=== PATIENT | male | born 1930 | race Caucasian/White ===

== ENCOUNTER → 2018-06-07 | Outpatient (CLI) | payer MEDICARE, OTHER ==
[~2018-06-07] MED LIST: HYDCOR2.5B TOP; HYDHCL10 PO
== END | disposition home or self-care (01) ==
LOC: PLD 13:46 → LAB SHORT 13:46
DX: L72.0 Epidermal cyst (principal)
CPT/HCPCS: 88305

== ENCOUNTER 2018-06-22 10:00 | Day surgery (SDC) | payer MEDICARE, OTHER ==
[~2018-06-22] VITALS: Ht 172.7 cm; Wt 83.2 kg
[2018-06-22] MEDS ORDERED: TAMS.4ER PO (12:21)
[2018-06-22] MEDS ORDERED: SYNTHROID25 MCG PO (12:24)
[2018-06-22] MEDS ORDERED: Felodipine ER2.5 MG PO (12:25)
[2018-06-22] MEDS ORDERED: OMEPRAZOLE20 MG PO (12:26)
[2018-06-22] MEDS ORDERED: CHOL10002 (12:27)
[2018-06-22] MEDS ORDERED: Calcium With M1 EAC2 (12:28)
[2018-06-22] MEDS ORDERED: ASPI81CH PO (12:28)
[2018-06-22] MEDS ORDERED: DIAZ5 PO (12:29)
[2018-06-22] MEDS ORDERED: MIRALAX17 GM PO (12:30)
[2018-06-22] MEDS ORDERED: ACET500 (12:30)
[2018-06-22] MEDS ORDERED: OMEGA 3-6-9 11200 MG PO (12:30)
--- NOTE | 2018-06-22 12:36 | NUR ---
06/22/18 1236 Shahzad Gan FIRST IV ATTEMPT IN LH UNSUCCESSFUL, [email or web address] 2ND IV ATTEMPT IN LAC SUCCESSFUL, [email or web address]
--- NOTE | 2018-06-22 13:47 | NUR ---
06/22/18 9154 Mihaela Short PT IS IN THE RECLINER AT THIS TIME AND ACCOMPANIED BY HIS GRANDDAUGHTER AND TWO GREAT GRANDSONS. VSS. RN WENT OVER DISCHARGE INSTRUCTIONS WITH PT AND PT'S FAMILY UNTIL ALL QUESTIONS WERE ANSWERED. PT CURRENTLY RATES PAIN 3/10. PT REQUEST ORAL PAIN MEDICATION. PT DENIES NAUSEA. PT ABLE TO TOLERATE PO FLUIDS AND CRACKERS WELL.
== END 2018-06-22 14:38 | disposition home or self-care (01) ==
LOC: ORSCSDS 10:00
PROVIDERS: Surgery
PROC: 0YU50JZ Supplement Right Inguinal Region with Synthetic Substitute, Open Approach (ICD-10-PCS; principal; 2018-06-22 11:30)
DX: K40.90 Unilateral inguinal hernia, without obstruction or gangrene, not specified as recurrent (principal); I12.9 Hypertensive chronic kidney disease with stage 1 through stage 4 chronic kidney disease, or unspecified chronic kidney disease; N18.3 Chronic kidney disease, stage 3 (moderate); J45.909 Unspecified asthma, uncomplicated; Z79.899 Other long term (current) drug therapy
CPT/HCPCS: C1781; J0690; J1100; J2405; J3010; J7120

== ENCOUNTER 2018-09-08 19:04 | Inpatient (IN) | payer MEDICARE, OTHER ==
[~2018-09-08] VITALS: Ht 172.7 cm; Wt 87.2 kg
[~2018-09-08 19:04] MED LIST changes: +ACET500; +ASPI81CH PO; +CHOL10002; +Calcium With M1 EAC2; +DIAZ5 PO; +Felodipine ER2.5 MG PO; +MIRALAX17 GM PO; +OMEGA 3-6-9 11200 MG PO; +OMEPRAZOLE20 MG PO; +SYNTHROID25 MCG PO; +TAMS.4ER PO
[2018-09-08 19:58] LABS: BASOPHILS ABSOLUTE AUTO 0.03 K/mm3 (0.00-0.23); BASOPHILS PERCENT AUTO 0 % (0-2); EOSINOPHILS ABSOLUTE AUTO 0.02 K/mm3 (0.00-0.68); EOSINOPHILS PERCENT AUTO 0 % (0-6); Hematocrit 45.4 % (37.0-53.0); Hemoglobin 15.1 g/dL (13.5-17.5); IMMATURE GRAN ABSOLUTE AUTO 0.05 K/mm3 (0.00-0.10); IMMATURE GRAN PERCENT AUTO 0 % (0-1); LYMPHOCYTES ABSOLUTE AUTO 0.74 K/mm3 (0.84-5.20); LYMPHOCYTES PERCENT AUTO 5 % (21-46); MONOCYTES ABSOLUTE AUTO 0.87 K/mm3 (0.16-1.47); MONOCYTES PERCENT AUTO 6 % (4-13); Mean Corpuscular HGB 32.4 pg (26.0-34.0); Mean Corpuscular HGB Conc 33.3 g/dL (31.5-36.5); Mean Corpuscular Volume 97 fL (80-100); Mean Platelet Volume 10.2 fL (9.1-12.4); NEUTROPHILS ABSOLUTE AUTO 12.74 K/mm3 (1.96-9.15); NEUTROPHILS PERCENT AUTO 88 % (41-73); Platelet Count 184 K/mm3 (150-400); RDW Coefficient Variation 12.3 % (11.7-14.2); RDW Standard Deviation 44.4 fL (35.1-46.3); Red Blood Cell Count 4.66 M/mm3 (4.30-5.90); White Blood Cell Count 14.45 K/mm3 (4.00-11.30)
[2018-09-08 20:31] LABS: Influenza A Negative (NEGATIVE); Influenza B Negative (NEGATIVE)
[2018-09-08 20:34] LABS: Albumin, Blood 3.3 g/dL (3.4-5.0); Albumin/Globulin Ratio 0.8 (0.8-1.8); Bilirubin, Total 1.6 mg/dL (0.1-1.0); Bun/Creatinine Ratio 17.3 (12.0-20.0); Calcium, Blood 8.8 mg/dL (8.5-10.1); Creatinine, Blood 1.33 mg/dL (0.60-1.20); Globulin, Blood 4.1 g/dL (2.2-4.0); Potassium, Blood 3.7 mmol/L (3.5-5.5); Total Protein, Blood 7.4 g/dL (6.4-8.2)
[2018-09-08] MEDS ORDERED: LEVSOD100 PO (22:06)
[2018-09-08] MEDS ORDERED: TAMS.4ER PO (22:06)
[2018-09-08] MEDS ORDERED: CHOL10002 (22:08)
[2018-09-08] MEDS ORDERED: Omeprazole20 M1 (22:08)
[2018-09-08] MEDS ORDERED: ALBU2.5V5 NEB (22:09)
[2018-09-08] MEDS ORDERED: DIAZ5 PO (22:09)
[2018-09-08] MEDS ORDERED: TYLENOL325 MG PO (22:10)
[2018-09-08] MEDS ORDERED: MIRALAX17 GM PO (22:10)
[2018-09-08 22:18] LABS: Source, Urine Clean Catch
[2018-09-08 22:21] LABS: Bilirubin, Urine Neg (Neg); Blood, Urine 4+ (Neg); Glucose Qualitative, Urine Neg (Neg); Ketones, Urine 3+ (Neg); Leukocyte Esterase, Urine 1+ (Neg); Nitrite, Urine Neg (Neg); Protein, Urine 2+ (Neg); Specific Gravity, Urine 1.015 (1.003-1.022); Urobilinogen, Urine NORM (Normal)
[2018-09-08 22:42] LABS: Appearance, Urine Clear (Clear); Color, Urine Yellow (P-Yellow)
[2018-09-08 22:43] LABS: Amorphous Light (0-Heavy); Bacteria Rare /hpf; Mucus Light (0-Heavy); Squamous Epithelial Cells Not Seen /hpf (Few); White Blood Cells, Urine 0-2 /hpf (0-5)
[2018-09-09] MEDS ORDERED: Prednisone50 MG PO (00:03)
[2018-09-09] MEDS ORDERED: ALBU90OI INH (00:03)
[2018-09-09] MEDS ORDERED: Zithromax250 MG PO (00:03)
[2018-09-09] MEDS ORDERED: BENZ100A PO (00:03)
[2018-09-09 05:43] LABS: Hematocrit 40.3 % (37.0-53.0); Hemoglobin 13.4 g/dL (13.5-17.5); Mean Corpuscular HGB 32.1 pg (26.0-34.0); Mean Corpuscular HGB Conc 33.3 g/dL (31.5-36.5); Mean Corpuscular Volume 96 fL (80-100); Mean Platelet Volume 10.5 fL (9.1-12.4); Platelet Count 162 K/mm3 (150-400); RDW Coefficient Variation 12.5 % (11.7-14.2); RDW Standard Deviation 44.5 fL (35.1-46.3); Red Blood Cell Count 4.18 M/mm3 (4.30-5.90); White Blood Cell Count 12.44 K/mm3 (4.00-11.30)
[2018-09-09 06:11] LABS: Albumin, Blood 2.7 g/dL (3.4-5.0); Albumin/Globulin Ratio 0.8 (0.8-1.8); Bilirubin, Total 1.3 mg/dL (0.1-1.0); Bun/Creatinine Ratio 17.2 (12.0-20.0); Calcium, Blood 7.9 mg/dL (8.5-10.1); Creatinine, Blood 1.28 mg/dL (0.60-1.20); Globulin, Blood 3.4 g/dL (2.2-4.0); Potassium, Blood 3.7 mmol/L (3.5-5.5); Total Protein, Blood 6.1 g/dL (6.4-8.2)
[2018-09-09 11:03] LABS: Adenovirus Not Detected (NOT DETECT); Bordetella pertussis Not Detected (NOT DETECT); Chlamydophila pneumoniae Not Detected (NOT DETECT); Coronavirus 229E Not Detected (NOT DETECT); Coronavirus HKU1 Not Detected (NOT DETECT); Coronavirus NL63 Not Detected (NOT DETECT); Coronavirus OC43 Not Detected (NOT DETECT); Human Metapneumovirus Not Detected (NOT DETECT); Human Rhinovirus/Enterovirus Not Detected (NOT DETECT); Influenza A Not Detected (NOT DETECT); Influenza A/2009-H1 Not Detected (NOT DETECT); Influenza A/H1 Not Detected (NOT DETECT); Influenza A/H3 Not Detected (NOT DETECT); Influenza B Not Detected (NOT DETECT); Mycoplasma pneumoniae Not Detected (NOT DETECT); Parainfluenza Virus 1 Not Detected (NOT DETECT); Parainfluenza Virus 2 Not Detected (NOT DETECT); Parainfluenza Virus 3 Not Detected (NOT DETECT); Parainfluenza Virus 4 Not Detected (NOT DETECT); Respiratory Syncytial Virus Not Detected (NOT DETECT)
--- NOTE | 2018-09-09 19:38 | NUR ---
SHIFT SUMMARY/ ADMIT NOTE PT ARRIVED VIA GURNEY TO FLOOR AT ABOUT 1417. REPORT RECIEVED FROM NACHO PENNINGTON RN AT 1402. ADMIT COMPLETED EXCEPT FOR ADMISSION ASSESSMENT DUE TO FAMILY REQUESTING THAT PT REST. THIS WAS PASSED ON TO SENIOR FORMULATION SCIENTIST NURSE WHO VERBALIZED THAT SHE WILL COMPLETE THIS ASSESSMENT. BED IN LOW POSITION, CALL LIGHT WITHIN REACH, BED ALARM ON. MED REC COMPLETE THOUGH PT WAS A POOR HISTORIAN. UP WITH 1 ASSIST, FWW AND STANLEY.
--- NOTE | 2018-09-09 20:52 | NUR ---
PATIENT FOUND TO HAve temp of 100.9 and tyleniol was given.
[2018-09-10 04:58] LABS: BASOPHILS ABSOLUTE AUTO 0.02 K/mm3 (0.00-0.23); BASOPHILS PERCENT AUTO 0 % (0-2); EOSINOPHILS PERCENT AUTO 0 % (0-6); Hematocrit 41.1 % (37.0-53.0); Hemoglobin 13.6 g/dL (13.5-17.5); IMMATURE GRAN ABSOLUTE AUTO 0.09 K/mm3 (0.00-0.10); IMMATURE GRAN PERCENT AUTO 1 % (0-1); LYMPHOCYTES ABSOLUTE AUTO 0.47 K/mm3 (0.84-5.20); LYMPHOCYTES PERCENT AUTO 4 % (21-46); MONOCYTES ABSOLUTE AUTO 0.57 K/mm3 (0.16-1.47); MONOCYTES PERCENT AUTO 5 % (4-13); Mean Corpuscular HGB Conc 33.1 g/dL (31.5-36.5); Mean Corpuscular Volume 97 fL (80-100); Mean Platelet Volume 10.5 fL (9.1-12.4); NEUTROPHILS ABSOLUTE AUTO 10.99 K/mm3 (1.96-9.15); NEUTROPHILS PERCENT AUTO 91 % (41-73); Platelet Count 146 K/mm3 (150-400); RDW Coefficient Variation 12.5 % (11.7-14.2); RDW Standard Deviation 44.7 fL (35.1-46.3); Red Blood Cell Count 4.25 M/mm3 (4.30-5.90); White Blood Cell Count 12.14 K/mm3 (4.00-11.30)
--- NOTE | 2018-09-10 17:10 | NUR ---
SHIFT SUMMARY PATIENT FEBRILE OVER 100 DEGREE F DAY SHIFT 09/10/18. WHEN FEVER GETS OVER 101 PATIENT SHAKES VIOLENTLY. HE WAS DIAPHORETIC AND CLAMMY. AFTER FEVER CAME DOWN A LITTLE AT ABOUT 1500 PATIENT HAS BEEN SLEEPING. HE IS A LITTLE UNSTEADY ON FEET AND THEREFORE CALLS FOR HELP GETTING UP. BED ALARM ON. FULLY A&O. LOTS OF FAMILY AT BEDSIDE.
--- NOTE | 2018-09-11 19:39 | NUR ---
SHIFT SUMMARY: NO ACUTE CHANGES TO REPORT THIS SHIFT. PT A&O; CALM AND COOPERATIVE WITH CARE. MEDICATED FOR HEADACHE PER EMAR. IV ABX CONTINUING. AWAITING PT & OT EVAL & TREAT. REPORT GIVEN TO ONCOMING RN.
[2018-09-12 08:05] LABS: Hematocrit 37.1 % (37.0-53.0); Hemoglobin 12.4 g/dL (13.5-17.5); Mean Corpuscular HGB 31.4 pg (26.0-34.0); Mean Corpuscular HGB Conc 33.4 g/dL (31.5-36.5); Mean Platelet Volume 10.8 fL (9.1-12.4); Platelet Count 169 K/mm3 (150-400); RDW Coefficient Variation 12.5 % (11.7-14.2); RDW Standard Deviation 43.7 fL (35.1-46.3); Red Blood Cell Count 3.95 M/mm3 (4.30-5.90); White Blood Cell Count 9.71 K/mm3 (4.00-11.30)
[2018-09-12 08:06] LABS: Mean Corpuscular Volume 94 fL (80-100)
[2018-09-12 08:18] LABS: Calcium, Blood 7.9 mg/dL (8.5-10.1); Creatinine, Blood 1.3 mg/dL (0.60-1.20); Potassium, Blood 3.3 mmol/L (3.5-5.5)
--- NOTE | 2018-09-12 17:26 | NUR ---
HE IS RESTING WITH A FEVER. HIS DAUGHTER IS AT THE BEDSIDE. WILL BE AVAILABLE ON WEDNESDAY. DR. PRETTY NOTIFIED OF CONTINUED FEVER INSPITE OF TYLENOL AND OF MORE RALES ON AUSCULTATION THIS AFTERNOON THAN THIS MORNING. HE WAS JUST HERE TO ASSESS SRIDHAR AND TALK WITH HE AND HIS DAUGHTER. SRIDHAR HAS HAD A BETTER DAY THE FIRST 8 HRS OF MY SHIFT. HE HAS AMBULATED IN THE MELGAR X2 AND EATEN WELL. HE IS VOIDING WELL AND DENIES PAIN. FEVER HIGH 102.3 TEMPORALLY AND 101.8 ORALLY. WILL CONTINUE TO FOLLOW.
--- NOTE | 2018-09-12 18:32 | NUR ---
CXR DONE. RESP PANEL SWAB DONE. ZOSYN JUST STARTED. TEMP DOWN TO 100.4 TEMPORALLY. HE IS TIRED BUT LESS FLUSHED AND FEELS A LITTLE BETTER THAN HE DID MOST OF THE AFTERNOON. LAB HAS BEEN NOTIFIED HE IS AVAILABLE NOW FOR HIS BLOOD CULTURES.
[2018-09-12 19:49] LABS: Adenovirus Not Detected (NOT DETECT); Bordetella pertussis Not Detected (NOT DETECT); Chlamydophila pneumoniae Not Detected (NOT DETECT); Coronavirus 229E Not Detected (NOT DETECT); Coronavirus HKU1 Not Detected (NOT DETECT); Coronavirus NL63 Not Detected (NOT DETECT); Coronavirus OC43 Not Detected (NOT DETECT); Human Metapneumovirus Not Detected (NOT DETECT); Human Rhinovirus/Enterovirus Not Detected (NOT DETECT); Influenza A Not Detected (NOT DETECT); Influenza A/2009-H1 Not Detected (NOT DETECT); Influenza A/H1 Not Detected (NOT DETECT); Influenza A/H3 Not Detected (NOT DETECT); Influenza B Not Detected (NOT DETECT); Mycoplasma pneumoniae Not Detected (NOT DETECT); Parainfluenza Virus 1 Not Detected (NOT DETECT); Parainfluenza Virus 2 Not Detected (NOT DETECT); Parainfluenza Virus 3 Not Detected (NOT DETECT); Parainfluenza Virus 4 Not Detected (NOT DETECT); Respiratory Syncytial Virus Not Detected (NOT DETECT)
--- NOTE | 2018-09-13 04:35 | NUR ---
TERMINAL WORKER SUMMARY PT AAOX4 AND COOPERATIVE WITH CARE. STANDBY ASSIST TO BATHROOM. PT FEVER IMPROVED THIS SHIFT WITH TEMP 97-98 DEGREES. CXR SHOWED PNA. PT LUNG SOUNDS COARSE IN BASES. SATTING AT 88-89% ON RA. PLACED PT ON 2L O2 VIA NC, BROUGHT SATS UP TO MID 90'S. CONTINUED ON IV ZOSYN Q6H. PT DENIES PAIN, N/V. VSS, WILL CONTINUE TO MONITOR.
[2018-09-13 04:48] LABS: BASOPHILS ABSOLUTE AUTO 0.03 K/mm3 (0.00-0.23); BASOPHILS PERCENT AUTO 0 % (0-2); EOSINOPHILS ABSOLUTE AUTO 0.06 K/mm3 (0.00-0.68); EOSINOPHILS PERCENT AUTO 1 % (0-6); Hematocrit 39.6 % (37.0-53.0); Hemoglobin 12.9 g/dL (13.5-17.5); IMMATURE GRAN ABSOLUTE AUTO 0.13 K/mm3 (0.00-0.10); IMMATURE GRAN PERCENT AUTO 1 % (0-1); LYMPHOCYTES ABSOLUTE AUTO 0.62 K/mm3 (0.84-5.20); LYMPHOCYTES PERCENT AUTO 6 % (21-46); MONOCYTES ABSOLUTE AUTO 0.59 K/mm3 (0.16-1.47); MONOCYTES PERCENT AUTO 6 % (4-13); Mean Corpuscular HGB 31.2 pg (26.0-34.0); Mean Corpuscular HGB Conc 32.6 g/dL (31.5-36.5); Mean Corpuscular Volume 96 fL (80-100); Mean Platelet Volume 10.8 fL (9.1-12.4); NEUTROPHILS ABSOLUTE AUTO 8.84 K/mm3 (1.96-9.15); NEUTROPHILS PERCENT AUTO 86 % (41-73); Platelet Count 189 K/mm3 (150-400); RDW Coefficient Variation 12.7 % (11.7-14.2); RDW Standard Deviation 45.5 fL (35.1-46.3); Red Blood Cell Count 4.13 M/mm3 (4.30-5.90); White Blood Cell Count 10.27 K/mm3 (4.00-11.30)
[2018-09-13 05:04] LABS: Bun/Creatinine Ratio 20.4 (12.0-20.0); Creatinine, Blood 1.42 mg/dL (0.60-1.20); Potassium, Blood 3.4 mmol/L (3.5-5.5)
--- NOTE | 2018-09-13 11:32 | NUR ---
Advance directive education visit conducted. Patient was sleeping when I entered the room but his daughter, Yelena, was present. I talked with her about the advance care directive and explained the importance of and process for the Advance directive. Yelena agreed to the importance but asked if I could come back when patient is more alert so that I could work through the booklet with him. I agreed to do so and will continue to remain available to patient and patient's family.
--- NOTE | 2018-09-13 14:01 | NUR ---
HE IS AMBULATING IN THE MELGAR WITH PT RIGHT NOW. HE HAS BEEN AFEBRILE TODAY. THE NEW DEVELOPMENT IS DIARRHEA. THIS MORNING BEFORE BREAKFAST HE PASSED A LIQUID STOOL AND SAID IT WAS HIS THIRD SINCE 3 AM. NOW HE SAYS HE HAS HAD 2 WATERY DIARRHEA STOOLS IN THE LAST HOUR AND A HALF. IF HE HAS A 3RD, I WILL ASK MD IF HE WANTS A STOOL TESTED FOR C-DIFF. HE EATS 100%. HE IS VOIDING FINE. HIS COUGH CONTINUES. IT IS NON-PRODUCTIVE.
--- NOTE | 2018-09-13 15:42 | NUR ---
HE HAS BEEN NAPPING SINCE HIS AMBULATION WITH PT.
--- NOTE | 2018-09-14 04:32 | NUR ---
SHIFT SUMMARY PT HAS SLEPT MOST OF THE NIGHT. HE DENIES PAIN. UP TO THE BATHROOM WITH MINIMAL ASSISTANCE. A/OX4 CALLS APPROPRIATELY. PT HAS NOT HAD ANY MORE LOOSE STOOLS SINCE DAYSHIFT. OCCASIONAL COUGH. PT HAS BEEN AFEBRILE THIS SHIFT. NO N/V. IV ABX INFUSED ORDERED. RESTFUL NIGHT. WILL CONTINUE TO MONITOR AND REPORT TO ONCOMING RN.
[2018-09-14 05:12] LABS: BASOPHILS ABSOLUTE AUTO 0.02 K/mm3 (0.00-0.23); BASOPHILS PERCENT AUTO 0 % (0-2); EOSINOPHILS PERCENT AUTO 2 % (0-6); Hematocrit 36.5 % (37.0-53.0); IMMATURE GRAN ABSOLUTE AUTO 0.19 K/mm3 (0.00-0.10); IMMATURE GRAN PERCENT AUTO 2 % (0-1); LYMPHOCYTES ABSOLUTE AUTO 0.77 K/mm3 (0.84-5.20); LYMPHOCYTES PERCENT AUTO 8 % (21-46); MONOCYTES ABSOLUTE AUTO 0.66 K/mm3 (0.16-1.47); MONOCYTES PERCENT AUTO 7 % (4-13); Mean Corpuscular HGB 30.9 pg (26.0-34.0); Mean Corpuscular HGB Conc 32.9 g/dL (31.5-36.5); Mean Corpuscular Volume 94 fL (80-100); NEUTROPHILS ABSOLUTE AUTO 8.07 K/mm3 (1.96-9.15); NEUTROPHILS PERCENT AUTO 81 % (41-73); Platelet Count 224 K/mm3 (150-400); RDW Coefficient Variation 12.8 % (11.7-14.2); RDW Standard Deviation 44.2 fL (35.1-46.3); Red Blood Cell Count 3.88 M/mm3 (4.30-5.90); White Blood Cell Count 9.91 K/mm3 (4.00-11.30)
[2018-09-14 05:43] LABS: Anion Gap 9 mmol/L (6-16); Blood Urea Nitrogen 24 mg/dL (8-24); Bun/Creatinine Ratio 20.2 (12.0-20.0); CO2, Blood 22 mmol/L (21-32); Chloride, Blood 107 mmol/L (98-108); Creatinine, Blood 1.19 mg/dL (0.60-1.20); Glomerular Filtration Rate >60 (60-); Glucose, Blood 116 mg/dL (70-99); Potassium, Blood 3.8 mmol/L (3.5-5.5); Sodium, Blood 138 mmol/L (136-145)
[2018-09-14] MEDS ORDERED: Augmentin 875-1 EACH PO (14:36)
--- NOTE | 2018-09-14 16:01 | NUR ---
D/C INSTRUCTIONS PROVIDED AND EXPLAINED. IV REMOVED. PT D/C VIA WHEELCHAIR WITH DAUGHTER AND CONTAINER PACKER OPERATOR.
== END 2018-09-14 15:42 | disposition home or self-care (01) | DRG 871 ==
LOC: ER 19:04 → ERHOLD 19:05 → MEDS 09-09 14:07 → ENPENDDIS 09-14 13:58 → MEDS 09-14 15:42
PROVIDERS: Hospitalist; Internal Medicine; Physician Assistant; ADMIT Internal Medicine
DX: A41.9 Sepsis, unspecified organism (principal); G92 Toxic encephalopathy; J18.1 Lobar pneumonia, unspecified organism; L03.116 Cellulitis of left lower limb; N40.0 Benign prostatic hyperplasia without lower urinary tract symptoms; K21.9 Gastro-esophageal reflux disease without esophagitis; E03.9 Hypothyroidism, unspecified; Z85.528 Personal history of other malignant neoplasm of kidney; Z90.5 Acquired absence of kidney; N18.3 Chronic kidney disease, stage 3 (moderate)
CPT/HCPCS: 36415; 71046; 80048; 80053; 81001; 83605; 84145; 85025; 85027; 87040; 87077; 87086; 87186; 87486; 87493; 87581; 87633; 87798; 87804; 94760; 96361; 96365; 96366; 96367; 96372; 97116; 97161; 97530; 99285-25; G0378; J0690; J0696; J1650; J2543; J3370; J7030; J7050

== ENCOUNTER 2020-05-26 17:07 | Inpatient (IN) | payer MEDICARE ==
[~2020-05-26] VITALS: Ht 172.7 cm; Wt 87.2 kg
[~2020-05-26 17:07] MED LIST changes: +ALBU2.5V5 NEB; +ALBU90OI INH; +Augmentin 875-1 EACH PO; +BENZ100A PO; +Omeprazole20 M1 PO; +Prednisone50 MG PO; +Zithromax250 MG PO
[2020-05-26 17:47] LABS: BASOPHILS ABSOLUTE AUTO 0.01 K/mm3 (0.00-0.23); BASOPHILS PERCENT AUTO 0 % (0-2); EOSINOPHILS PERCENT AUTO 0 % (0-6); Hematocrit 44.8 % (37.0-53.0); Hemoglobin 14.5 g/dL (13.5-17.5); IMMATURE GRAN ABSOLUTE AUTO 0.06 K/mm3 (0.00-0.10); IMMATURE GRAN PERCENT AUTO 1 % (0-1); LYMPHOCYTES ABSOLUTE AUTO 0.65 K/mm3 (0.84-5.20); LYMPHOCYTES PERCENT AUTO 6 % (21-46); MONOCYTES ABSOLUTE AUTO 0.91 K/mm3 (0.16-1.47); MONOCYTES PERCENT AUTO 8 % (4-13); Mean Corpuscular HGB 30.7 pg (26.0-34.0); Mean Corpuscular HGB Conc 32.4 g/dL (31.5-36.5); Mean Corpuscular Volume 95 fL (80-100); Mean Platelet Volume 11.4 fL (9.1-12.4); NEUTROPHILS ABSOLUTE AUTO 9.48 K/mm3 (1.96-9.15); NEUTROPHILS PERCENT AUTO 85 % (41-73); Platelet Count 185 K/mm3 (150-400); RDW Coefficient Variation 12.6 % (11.7-14.2); RDW Standard Deviation 44.7 fL (35.1-46.3); Red Blood Cell Count 4.72 M/mm3 (4.30-5.90); White Blood Cell Count 11.11 K/mm3 (4.00-11.30)
[2020-05-26 18:02] LABS: Albumin, Blood 3.1 g/dL (3.4-5.0); Albumin/Globulin Ratio 0.7 (0.8-1.8); Bilirubin, Total 1.6 mg/dL (0.1-1.0); Bun/Creatinine Ratio 18.5 (12.0-20.0); Calcium, Blood 9.2 mg/dL (8.5-10.1); Creatinine, Blood 1.73 mg/dL (0.60-1.20); Globulin, Blood 4.5 g/dL (2.2-4.0); Potassium, Blood 4.4 mmol/L (3.5-5.5); Total Protein, Blood 7.6 g/dL (6.4-8.2)
[2020-05-26 18:48] LABS: Influenza A, PCR Negative (NEGATIVE); Influenza B, PCR Negative (NEGATIVE); Resp Syncytial Virus, PCR Negative (NEGATIVE); SARS-Cov-2 (COVID-19) PCR, MMC Negative (NEGATIVE)
[2020-05-26 18:59] LABS: Source, Urine Clean Catch
[2020-05-26 19:02] LABS: Bilirubin, Urine Neg (Neg); Blood, Urine 4+ (Neg); Glucose Qualitative, Urine Neg (Neg); Ketones, Urine 2+ (Neg); Leukocyte Esterase, Urine Neg (Neg); Nitrite, Urine Neg (Neg); Protein, Urine 2+ (Neg); Urobilinogen, Urine NORM (Normal)
[2020-05-26] MEDS ORDERED: LEVSOD100 PO (19:10)
[2020-05-26] MEDS ORDERED: FELODIPINE ER2.5 MG PO (19:10)
[2020-05-26] MEDS ORDERED: DYAZIDE 37.5-21 EACH PO (19:11)
[2020-05-26] MEDS ORDERED: TAMS.4ER PO (19:11)
[2020-05-26] MEDS ORDERED: DIAZ5 PO (19:12)
[2020-05-26 19:13] LABS: Appearance, Urine Clear (Clear); Color, Urine Yellow (P-Yellow)
[2020-05-26 19:14] LABS: White Blood Cells, Urine 0-2 /hpf (0-5)
[2020-05-26 19:15] LABS: Bacteria Rare /hpf; Squamous Epithelial Cells Rare /hpf (Few)
[2020-05-26 19:24] LABS: PO2 Arterial 59.6 mmHg (80-100); pH Blood Arterial 7.47 (7.35-7.45)
[2020-05-26] MEDS ORDERED: ACET500 PO (19:46)
[2020-05-26] MEDS ORDERED: Aspir 8181 MG PO (19:46)
[2020-05-27 06:06] LABS: Bun/Creatinine Ratio 19.2 (12.0-20.0); Calcium, Blood 8.3 mg/dL (8.5-10.1); Creatinine, Blood 1.46 mg/dL (0.60-1.20); Potassium, Blood 3.6 mmol/L (3.5-5.5)
--- NOTE | 2020-05-27 06:30 | NUR ---
T/F AND SUMMARY: REPORT RECEIVED FROM RYLIE, METAL FURNITURE REPAIRER AT 2220 AND PT T/F TO ROOM 302 AT 2238 VIA MELISSA W/APRIL AT BEDSIDE. HE'S A/OX4, WAS ORIENTED TO ROOM AND CALL SYSTEM AND WAS AWARE TO CALL STAFF FOR ASSISTANCE. PT IS WEAK R/T ILLNESS W/AN ESSENTIAL TREMOR SO WAS ADVISED TO UTILIZE SBA FOR FALL PREVENTION. URINAL PROVIDED BUT HE USED RESTROOM THIS SHIFT TO VOID. TELEMETRY COMMENCED: NSR AT 70'S BPM. DVT PROPHYLAXIS W/LOVENOX COMMENCED. PT HAD LOW GRADE TEMP OF 100 AT START OF SHIFT W/GENERALIZED WHOLE BODY PAIN, TYLENOL RECIEVED FOR GOOD EFFECT. HE HAD IVF AND IV ABX IN ER FOR PNM AND GRANDSON REPORTED STRENGTH ALREADY NOTICEABLY IMPROVED. RAPID COVID (-) DESPITE [place] ATTENUATION TO L.LOBE ON CXR. HE LIVES W/GRANDSON AND THEY PROVIDE IN HOME ASSISTANCE PRN. LS ARE CLEAR AND DIM T/O W/SPO2 WNL ON RA. 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 PT TAKES PILLS WHOLE IN APPLESAUCE W/O DIFFICULTY SWALLOWING. NO ACUTE CHANGES, VSS/AFEBRILE. WCTM AND REPORT TO DAY RN.
--- NOTE | 2020-05-27 18:52 | NUR ---
SHIFT SUMMARY SRIDHAR DENIED PAIN. TEMP OF 100.2 TODAY, TYLENOL GIVEN . SBA TO BR, BED ALARM ON, PT FORGETFUL. WORKED WITH PT AND SOUND INSTALLATION WORKER. ASP PRECAUTIONS, PILLS IN APPLESAUCE CALL LIGHT IN REACH, WCTM
[2020-05-28 04:45] LABS: Hematocrit 37.7 % (37.0-53.0); Hemoglobin 12.4 g/dL (13.5-17.5); Mean Corpuscular HGB 30.9 pg (26.0-34.0); Mean Corpuscular HGB Conc 32.9 g/dL (31.5-36.5); Mean Corpuscular Volume 94 fL (80-100); Mean Platelet Volume 10.9 fL (9.1-12.4); Platelet Count 154 K/mm3 (150-400); RDW Coefficient Variation 12.7 % (11.7-14.2); RDW Standard Deviation 44.5 fL (35.1-46.3); Red Blood Cell Count 4.01 M/mm3 (4.30-5.90); White Blood Cell Count 7.54 K/mm3 (4.00-11.30)
--- NOTE | 2020-05-28 05:00 | NUR ---
PT REQUESTINF "INHALER" THAT THEY'D GIVEN HIM IN ER. PT DIDN'T HAVE ANY RT MEDS RX'D SO MADE AWARE AND BD PROTOCOL RX'D. RT NOTIFIED. PT DOESN'T APPEAR DYSPNEIC OR SOB BUT SAID HE FEELS LIKE HE "JUST CAN'T TAKE A DEEP BREATH W/O COUGHING". LS REMAIN CLEAR AND DIM IN BASES. WCTM.
[2020-05-28 05:07] LABS: Calcium, Blood 8.1 mg/dL (8.5-10.1); Creatinine, Blood 1.53 mg/dL (0.60-1.20); Potassium, Blood 3.4 mmol/L (3.5-5.5)
--- NOTE | 2020-05-28 05:25 | NUR ---
RT EVALUATED PT AND PLACED HIM ON 2L VIA NC D/T SPO2 88% ON RA AND PROVIDED BX TX FOR PT C/O OF FEELING "A LITTLE SOB". SPO2 WNL NOW AND PT ADMITS TO IMPROVED RESPIRATIONS.
--- NOTE | 2020-05-28 05:26 | NUR ---
SUMMARY: A/O BUT PT CAN BE FORGETFULL AND IMPULSIVE TO VOID SO BED ALARM ARMED. FALL PREC'S IN PLACE D/T GENERALIZED WEAKNESS AND ESSENTIAL TREMOR WORSE LIKELY D/T ILLNESS. 1ST LITER LR INFUSING AND CAN BE SL AFTER 2ND BAG. IV ABX RECIEVED AND BD PROTOCOL COMMENCED D/T PT C/O OF FEELING SLIGHTLY SOB. RT PLACED PT ON 2L O2 VIA NC D/T SPO2 88% ON RA AND BX TX WAS RECIEVED. PT WAS CONTINENT/INCONTINENT AND UP TO TOILET W/SBA. HE ALSO HAD MEDIUM BM THIS SHIFT, SLIGHTLY SOILING HIMSELF 1ST SO PT DENIED NEEDING BOWEL CARE MEDS. SKIN CARE PROVIDED AND ATTENDS CHANGED PRN. HE PREFERS TO SLEEP ON HIS STOMACH AND REPOSITIONS SELF IN BED. PILL TOLERATED PILLS IN APPLESAUCE. NO ACUTE CHANGES, VSS/AFEBRILE. WCTM AND REPORT TO DAY RN.
--- NOTE | 2020-05-28 18:45 | NUR ---
SHIFT SUMMARY SRIDHAR COMPLAINED OF HEADACHE AND HIP PAIN TODAY, RECEIVED TYLENOL. WALKED IN HALLWAY WITH PT. SBA TO BR, SET OFF BED ALARM TWICE. WEANED TO ROOM AIR. INCONTINENT/CONTINENT OF URINE AND STOOL. PILLS ONE AT A TIME IN APPLESAUCE. MIVF DISCONTINUED. NO FEVERS THIS SHIFT. HAD DAUGHTER VISIT. CALL LIGHT IN REACH, [facility]
--- NOTE | 2020-05-29 03:46 | NUR ---
DIRECTOR PAYMENT SUMMARY A/OX4, SBA TO BATHROOM. PT IS PLEASANT AND USES CALL LIGHT APPROPRIATELY. DENIES PAIN OR SOB. CURRENTLY ON ROOM AIR WITHOUT DIFFICULTY BREATHING. VSS/AFEBRILE. NO ACUTE CHANGES AT THIS TIME. BED IN LOWEST POSITION WITH CALL LIGHT IN REACH. WILL CONTINUE TO MONITOR AND REPORT TO ONCOMING RN.
[2020-05-29 05:38] LABS: Bun/Creatinine Ratio 18.1 (12.0-20.0); Calcium, Blood 8.5 mg/dL (8.5-10.1); Creatinine, Blood 1.44 mg/dL (0.60-1.20); Potassium, Blood 3.5 mmol/L (3.5-5.5)
[2020-05-29] MEDS ORDERED: VISBIOME PROBIOTIC PO (11:19)
[2020-05-29] MEDS ORDERED: Vitamin D2000 UNIT PO (11:19)
[2020-05-29] MEDS ORDERED: AMOCLA500 PO (11:22)
--- NOTE | 2020-05-29 12:15 | NUR ---
PATIENT D/C'D TO HOME WITH FAMILY. DC INSTRUCTIONS AND EDUCATION DISCUSSED WITH PATIENT AND COPY PROVIDED. [facility]. PATIENT DENIES ANY FURTHER QUESTIONS OR CONCERNS.
== END 2020-05-29 12:17 | disposition home health service (06) | DRG 193 ==
LOC: ER 17:07 → MEDS 22:32
PROVIDERS: Emergency Medicine; Internal Medicine; Physician Assistant; ADMIT Internal Medicine
DX: J18.9 Pneumonia, unspecified organism (principal); J96.01 Acute respiratory failure with hypoxia; E87.1 Hypo-osmolality and hyponatremia; R65.10 Systemic inflammatory response syndrome (SIRS) of non-infectious origin without acute organ dysfunction; C64.9 Malignant neoplasm of unspecified kidney, except renal pelvis; Z66 Do not resuscitate; I12.9 Hypertensive chronic kidney disease with stage 1 through stage 4 chronic kidney disease, or unspecified chronic kidney disease; N18.30 Chronic kidney disease, stage 3 unspecified; K21.9 Gastro-esophageal reflux disease without esophagitis; Z20.828 Contact with and (suspected) exposure to other viral communicable diseases; R13.10 Dysphagia, unspecified; E03.9 Hypothyroidism, unspecified
CPT/HCPCS: 0241U; 36415; 36600; 71045; 80048; 80053; 81001; 82550; 82803; 84145; 85025; 85027; 92526; 92610; 94640; 96361; 96365; 96367; 97110; 97116; 97162; 97165; 97535; 99285-25; A9270; J0696; J1650; J2543; J7030; J7120